=== PATIENT | female | born 1970 | race American Indian/Alaskan Native ===

== ENCOUNTER 2021-10-30 12:51 | Emergency (ER) | payer SELFPAY ==
[2021-10-30] MEDS ORDERED: OXYMETAZOLINE 0.05% NASAL SPRAY NS ONE (13:17)
[2021-10-30] MEDS ORDERED: LISINOPRIL 10 MG TAB PO ONE (13:17)
[2021-10-30] MEDS: amLODIPine 5 MG TAB PO ONE (14:43)
--- NOTE | 2021-10-30 15:14 | Emergency Department Report ---
ED General Adult HPI - General Chief complaint: Nosebleed Stated complaint: NOSEBLEED Time Seen by Provider: 10/30/21 13:09 Source: patient Mode of arrival: Wheelchair Limitations: No Limitations - History of Present Illness Initial comments: Patient is a 51-year-old female presents emergency room complaints of epistaxis that began at 12 PM today. She reports that she was at work when it began. She states that she had a similar episode a couple years ago. Patient states that her blood pressure was also elevated at that time. She states that she has not taken her blood pressure medication in almost 2 years. she states that she supposed to be taking lisinopril and amlodipine and one other medication. She states that she is not sure of the other medication. She denies any other symptoms except for the nosebleed. She denies any headache, vision changes, vomiting, chest pain, shortness of breath, numbness, weakness, speech disturbance, gait disturbance. No allergies to medications. - Related Data Previous Rx's Medication Instructions Recorded Last Taken Type amLODIPine 10 mg PO DAILY #30 tab 10/30/21 Unknown Rx lisinopriL [Lisinopril] 10 mg PO DAILY #30 tab 10/30/21 Unknown Rx Allergies Allergy/AdvReac Type Severity Reaction Status Date / Time No Known Allergies Allergy Unverified 10/30/21 12:53 ED Review of Systems ROS: Stated complaint: NOSEBLEED Other details as noted in HPI Comment: All other systems reviewed and negative ED Past Medical Hx - Past Medical History Hx Hypertension: Yes - Surgical History Past Surgical History?: No - Medications Home Medications: Home Medications Medication Instructions Recorded Confirmed Last Taken Type amLODIPine 10 mg PO DAILY #30 tab 10/30/21 Unknown Rx lisinopriL [Lisinopril] 10 mg PO DAILY #30 tab 10/30/21 Unknown Rx ED Physical Exam - General Limitations: No Limitations General appearance: alert, in no apparent distress - Head Head exam: Present: atraumatic, normocephalic - Eye Eye exam: Present: normal appearance - ENT ENT exam: Present: normal orophraynx, mucous membranes moist, other (right naris is normal in appearance, small amount of bleeding from the left naris with blood clot present) - Respiratory Respiratory exam: Absent: respiratory distress, accessory muscle use - Neurological Exam Neurological exam: Present: alert, oriented X3 - Psychiatric Psychiatric exam: Present: normal affect, normal mood - Skin Skin exam: Present: warm, dry, intact ED Course Vital Signs 10/30/21 10/30/21 12:57 15:20 Temperature 98.0 F Pulse Rate 72 74 Respiratory 20 16 Rate Blood Pressure 188/109 Blood Pressure 189/94 [Right] O2 Sat by Pulse 100 100 Oximetry ED Medical Decision Making - Lab Data Vital Signs 10/30/21 10/30/21 12:57 15:20 Temperature 98.0 F Pulse Rate 72 74 Respiratory 20 16 Rate Blood Pressure 188/109 Blood Pressure 189/94 [Right] O2 Sat by Pulse 100 100 Oximetry - Medical Decision Making Patient is a 51-year-old female presents emergency room complaints of epistaxis that began at 12 PM today. She reports that she was at work when it began. She states that she had a similar episode a couple years ago. Patient states that her blood pressure was also elevated at that time. She states that she has not taken her blood pressure medication in almost 2 years. she states that she supposed to be taking lisinopril and amlodipine and one other medication. She states that she is not sure of the other medication. She denies any other symptoms except for the nosebleed. She denies any headache, vision changes, vomiting, chest pain, shortness of breath, numbness, weakness, speech disturbance, gait disturbance. No allergies to medications. Vitals with elevated blood pressure, patient has chronic hypertension has been off her medication for almost 2 years, she has no other symptoms related to her blood pressure. On exam: right naris is normal in appearance, small amount of bleeding from the left naris with blood clot present. Patient given her doses of her home medication on the emergency department. Afrin spray was used and epistaxis stopped. Advised patient Please take medication as prescribed. Please keep a blood pressure log. Eat a low-sodium diet. Incorporate 30-60 minutes of daily exercise. Increase your water intake. Follow-up with your primary care doctor. If your nose begins to bleed please spray Afrin and hold tight pressure for 10 minutes straight, otherwise do not use afrin spray. Return to emergency room immediately for any new or worsening symptoms. Critical care attestation.: If time is entered above; I have spent that time in minutes in the direct care of this critically ill patient, excluding procedure time. ED Disposition Clinical Impression: Epistaxis, Uncontrolled hypertension Disposition: HOME / SELF CARE / HOMELESS Is pt being admited?: No Does the pt Need Aspirin: No Condition: Stable Instructions: Nosebleed, Adult, Hypertension, Adult, Hypertension (ED) Additional Instructions: Please take medication as prescribed. Please keep a blood pressure log. Eat a low-sodium diet. Incorporate 30-60 minutes of daily exercise. Increase your water intake. Follow-up with your primary care doctor. If your nose begins to bleed please spray Afrin and hold tight pressure for 10 minutes straight, otherwise do not use afrin spray. Return to emergency room immediately for any new or worsening symptoms. Prescriptions: amLODIPine 10 mg PO DAILY #30 tab lisinopriL [Lisinopril] 10 mg PO DAILY #30 tab Referrals: DANTE SHANKS MD [Staff Physician] - 3-5 Days [facility] [Provider Group] - 3-5 Days [facility] [Outside] - 3-5 Days [facility] [Outside] - 3-5 Days [facility], [LAB/CONTRACT] - 3-5 Days Time of Disposition: 15:12 Print Language: [place]
[2021-10-30 15:22] VITALS: BP 189/94
== END 2021-10-30 16:31 | disposition home or self-care (01) ==
LOC: ED 12:51
DX: R04.0 Epistaxis (principal); I10 Essential (primary) hypertension
CPT/HCPCS: 99282